=== PATIENT | male | born 1960 | race Caucasian/White ===

== ENCOUNTER 2016-07-19 05:52 | Outpatient (CLI) | payer OTHER ==
[~2016-07-19] VITALS: Ht 162.6 cm; Wt 90.7 kg
[~2016-07-19 05:52] MED LIST: HYDR-757 PO; SULF-222 PO
== END 2016-07-19 13:20 ==
LOC: PREOP 05:52
PROVIDERS: ATTEND Surgery
DX: Z01.818 Encounter for other preprocedural examination (principal); Z86.010 Personal history of colon polyps

== ENCOUNTER 2020-12-23 11:27 | Outpatient (CLI) | payer OTHER ==
[~2020-12-23] VITALS: Ht 162.6 cm; Wt 99.8 kg
[2020-12-23 11:19] VITALS: BP 159/74
[2020-12-23] MEDS ORDERED: ACETAMINOPHEN 500 MG TAB (TYLENOL) PO PRN (11:45)
[2020-12-23] MEDS ORDERED: EPINEPHrine INJECTION 1 MG/ML AMP IM PRN (11:45)
[2020-12-23] MEDS ORDERED: CASIRIVIMAB/IMDEVIMAB 1,200 MG in NS (IVPB) 250 ML IV ONE (11:45)
[2020-12-23] MEDS ORDERED: ONDANSETRON 4 MG/2 ML (SDV) Z0FRAN IV PRN (11:45)
[2020-12-23] MEDS ORDERED: diphenhydrAMINE 50 MG/ML INJ (BENADRYL) IV PRN (11:45)
[2020-12-23 12:30] VITALS: BP 146/70
== END 2020-12-23 13:13 | disposition home or self-care (01) ==
LOC: INFUSION 11:27
PROVIDERS: ATTEND Nurse Practitioner Family
DX: U07.1 COVID-19 (principal)